=== PATIENT | female | born 1995 | race Caucasian/White ===

== ENCOUNTER → 2017-05-04 15:54 | Outpatient (CLI) | payer MEDICAID, SELFPAY | PROVIDERS: Family Provider Family Medicine; PCP Family Medicine; Visit Provider Otolaryngology | DX: J03.90 Acute tonsillitis, unspecified (principal) | CPT/HCPCS: 87070; 87077 ==

== ENCOUNTER → 2017-05-19 15:36 | Outpatient (CLI) | payer MEDICAID, SELFPAY ==
--- NOTE | 2017-05-19 10:48 | TONS_PTH ---
PATIENT: HEDY ALFARO LOC: [facility] U#:[id number] AGE/SX: 29/F ROOM: RE05/19/[address]: Dr. Charly Cardenas MD : 1995 BED: DIS: SPEC #: [id number] RECD: 05/19/17 15:29 STATUS: TIFFANY ALFRED #: [id number] CHANELL: 05/19/17 10:[address]: Charly Cardenas DEPT: SURGICAL PATHOLOGY RECD BY: Roger Nunez ENTERED: 05/20/17 10:54 SP TYPE: TONSILS OTHR DR: Dr. Yousif Bruno, [facility] Tissues: Tonsil, NOS Procedures: Surgery Specimen Level III HEADER OPERATION: Tonsillectomy PRE-OP DIAGNOSIS: Chronic tonsillitis TISSUE SUBMITTED: Tonsils (right pinned) MICROSCOPIC DIAGNOSIS Bilateral tonsils: Reactive lymphoid hyperplasia, consistent with chronic tonsillitis. Focal actinomyces colonization. SJ:carlyle 05/21/17 MICROSCOPIC DESCRIPTION Slides are reviewed. GROSS DESCRIPTION Received is one container labeled with the patient's name and designated tonsils - pin on right are two tonsils that in aggregate weigh 10.9 gm. The right tonsil has a pin on it and measures 3.8 x 2.6 x 1.6 cm. The left tonsil measures 3.8 x 2.5 x 1.6 cm. Both tonsils are similar in appearance. The external surfaces are pink-paez, smooth, glistening and somewhat lobulated. Focally they are hemorrhagic, granular and bear cautery artifact. Serial cross sections through the tonsils reveal normal tonsillar architecture. Sections are submitted in two cassettes as follows: 1 - right tonsil, 2 - left tonsil. / AM:carlyle 05/20/17 TC:3 CPT: 26972 x2
== END ==
PROVIDERS: Family Provider Family Medicine; PCP Family Medicine; Visit Provider Otolaryngology
DX: J35.01 Chronic tonsillitis (principal)
CPT/HCPCS: 88304